=== PATIENT | female | born 1965 | race Caucasian/White ===

== ENCOUNTER 2023-06-28 21:01 | Emergency (ER) | payer MEDICAID ==
[~2023-06-28] VITALS: Ht 157.4 cm; Wt 54.4 kg
== END 2023-06-28 23:55 | disposition short-term general hospital (02) ==
LOC: ED 21:01
DX: S82.142A Displaced bicondylar fracture of left tibia, initial encounter for closed fracture (principal); I10 Essential (primary) hypertension; W17.89XA Other fall from one level to another, initial encounter; Y93.H9 Activity, other involving exterior property and land maintenance, building and construction; Y92.89 Other specified places as the place of occurrence of the external cause; Y99.8 Other external cause status